=== PATIENT | male | born 1945 | race Caucasian/White ===

== ENCOUNTER 2025-02-15 06:47 | Day surgery (SDC) | payer MEDICARE ==
[~2025-02-15] VITALS: Ht 198.1 cm; Wt 75.8 kg
[2025-02-15] VITALS (9 sets, daily range): BP systolic 148–172; BP diastolic 76–92
[2025-02-15] MEDS ORDERED: CeFAZolin Sodium 1000 mg Vial ONE (06:54)
[2025-02-15] MEDS ORDERED: Heparin Sodium 1000 Units/ML 10ML MDV ONE (06:55)
[2025-02-15] MEDS ORDERED: NS 1,000 ML IV ONE ×2 (06:55→07:15)
[2025-02-15] MEDS ORDERED: Aspir 8181 MG PO (07:11)
[2025-02-15] MEDS ORDERED: Midazolam HCl 1MG / ML 2ML Vial ONE (07:15)
[2025-02-15] MEDS ORDERED: FentaNYL Citrate 50 MCG/ML 2 ML Injection ONE (07:15)
[2025-02-15] MEDS ORDERED: NS 0 ML IV ONE (07:15)
[2025-02-15] MEDS ORDERED: CeFAZolin Sodium 2,000 MG VIAL ONE ×2 (07:15→07:23)
[2025-02-15] MEDS ORDERED: NS 50 ML IV ONE (07:23)
--- NOTE | 2025-02-15 09:20 | NUR ---
PATIENT ARRIVED BACK TO RECOVERY ROOM SITTING UPRIGHT IN RECLINER. PATIENT DENYING ANY PAIN. LEFT PACEMAKER SITE DRY AND INTACT. VSS ON RA.
--- NOTE | 2025-02-15 10:00 | NUR ---
PATIENT SITTING UPRIGHT IN RECLINER, TOLERATING PO INTAKE WELL. CHEST X RAY PERFORMED. PATIENT COMPLAINING OF MILD PAIN AT INCISION SITE. 650 MG PO TYLENOL GIVEN. WILL CONTINUE TO MONITOR. ICE PACK PLACED ON INCISION SITE. MILD OOZING NOTED. WILL CONTINUE TO MONITOR. VSS ON RA.
--- NOTE | 2025-02-15 11:23 | NUR ---
PATIENT DISHCARGED HOME AT THIS TIME. DISCHARGE INSTRUCTIONS REVIEWED WITH PATIENT AND SON APOLINAR. ALL QUESTIONS WERE ANSWERED. ALL PATIENT BELONGINGS, PAPERWORK, AND PACEMAKER MONITOR LEFT WITH PATIENT. PIV REMOVED WITHOUT DIFFCIULTY, CATHETER INTACT. PATIENT WHEELED TO HOSPITAL ENTRANCE AND SON ABLE TO PROVIDE TRANSPORTATION HOME.
== END 2025-02-15 11:23 | disposition home or self-care (01) ==
LOC: MHTC 06:47
DX: I45.5 Other specified heart block (principal); I46.9 Cardiac arrest, cause unspecified; R55 Syncope and collapse; R00.1 Bradycardia, unspecified; R42 Dizziness and giddiness
CPT/HCPCS: 33208; 71046; 99152; 99153; A9270; C1785; C1894; C1898; J0690; J1644; J2250; J3010; J7030; J7040; Q9967

== ENCOUNTER 2025-04-04 11:13 | Inpatient (IN) | payer MEDICARE ==
[~2025-04-04] VITALS: Ht 198.1 cm; Wt 76.5 kg
[~2025-04-04 11:13] MED LIST: Aspir 8181 MG PO
[2025-04-04] MEDS ORDERED: HYDROmorphone HCl/Pf 1MG SYR IV ONE ×2 (11:25→11:45)
[2025-04-04] MEDS ORDERED: Ondansetron HCl 2 MG / ML 2ML Vial IV ONE (11:25)
[2025-04-04] MEDS ORDERED: Ketorolac Tromethamine 30mg Vial IV ONE (11:25)
[2025-04-04 11:45] LABS: BASOPHILS ABSOLUTE AUTO 0.04 K/mm3 (0.00-0.23); BASOPHILS PERCENT AUTO 0 % (0-2); EOSINOPHILS ABSOLUTE AUTO 0.01 K/mm3 (0.00-0.68); EOSINOPHILS PERCENT AUTO 0 % (0-6); Hematocrit 38.8 % (37.0-53.0); Hemoglobin 13.4 g/dL (13.5-17.5); IMMATURE GRAN ABSOLUTE AUTO 0.06 K/mm3 (0.00-0.10); IMMATURE GRAN PERCENT AUTO 1 % (0-1); LYMPHOCYTES ABSOLUTE AUTO 0.48 K/mm3 (0.84-5.20); LYMPHOCYTES PERCENT AUTO 4 % (21-46); MONOCYTES ABSOLUTE AUTO 0.98 K/mm3 (0.16-1.47); MONOCYTES PERCENT AUTO 8 % (4-13); Mean Corpuscular HGB Conc 34.5 g/dL (31.5-36.5); Mean Corpuscular Volume 96 fL (80-100); NEUTROPHILS ABSOLUTE AUTO 10.39 K/mm3 (1.96-9.15); NEUTROPHILS PERCENT AUTO 87 % (41-73); NRBC ABSOLUTE 0.00 K/mm3 (0.00-0.02); NRBC Auto 0.0 /100 WBC (0.0-0.2); Platelet Count 170 K/mm3 (150-400); RDW Coefficient Variation 12.4 % (11.7-14.2); RDW Standard Deviation 43.5 fL (35.1-46.3)
[2025-04-04 12:06] LABS: Alanine Aminotransfer (ALT/SGP 18.0 U/L (12-78); Albumin, Blood 3.3 g/dL (3.4-5.0); Albumin/Globulin Ratio 0.6 (0.8-1.8); Anion Gap 11.0 mmol/L (3-11); Aspartate Aminotrans (AST/SGOT 29.0 U/L (12-37); Bilirubin, Total 1.3 mg/dL (0.1-1.0); Blood Urea Nitrogen 22.0 mg/dL (8-24); CO2, Blood 25.0 mmol/L (21-32); Calcium, Blood 9.3 mg/dL (8.5-10.1); Chloride, Blood 104.0 mmol/L (98-108); Creatinine, Blood 1.38 mg/dL (0.60-1.20); Globulin, Blood 5.1 g/dL (2.2-4.0); Glucose, Blood 153.0 mg/dL (70-99); Potassium, Blood 5.0 mmol/L (3.5-5.5); Sodium, Blood 135.0 mmol/L (136-145); Total Protein, Blood 8.4 g/dL (6.4-8.2)
[2025-04-04 16:18] LABS: BODY FLUID RBC 0.010 M/mm3 (0-0)
[2025-04-04 16:30] LABS: RBC Count, Synovial Fluid 10000 /mm3 (0-0); WBC Count, Synovial Fluid 65600 /mm3 (0-180)
[2025-04-04 17:00] LABS: Appearance, Synovial Fluid Cloudy (Clear); Color, Synovial Fluid Yellow (None-P Yel); Lymphs, Synovial Fluid 1 % (0-15); Monocytes/Macrophages, Synovia 8 % (0-65); Neutrophils, Synovial Fluid 91 % (0-24)
[2025-04-04] MEDS ORDERED: CeFAZolin 1000MG in D5W 50 ML IV ONE (17:05)
[2025-04-04] MEDS ORDERED: CeFAZolin Sodium 1,000 MG in NS 50 ML IV ONE (17:05)
[2025-04-04 18:02] LABS: Lactate Dehydrogenase, Body Fl 931 U/L
[2025-04-04] MEDS ORDERED: FentaNYL Citrate 50 MCG/ML 2 ML Injection IV PRN (18:10)
[2025-04-04] MEDS ORDERED: OxyCODONE 5 mg/Acetamin 325 mg TABLET PO PRN (18:10)
[2025-04-04] MEDS ORDERED: Vancomycin (Pharmacy Consult) IV SCH (18:10)
[2025-04-04] MEDS ORDERED: Ondansetron HCl 2 MG / ML 2ML Vial IV PRN (18:10)
[2025-04-04] MEDS ORDERED: NS 1,000 ML IV SCH (18:30)
[2025-04-04] MEDS ORDERED: CefTRIAXone Sodium 2,000 MG in NS 100 ML IV SCH (18:30)
[2025-04-04 22:11] VITALS: BP 145/95
[2025-04-05] VITALS (19 sets, daily range): BP systolic 77–136; BP diastolic 53–98
--- NOTE | 2025-04-05 04:09 | NUR ---
SHIFT SUMMARY MAYTE WAS ALERT AND FULLY ORIENTED WHEN HE ARRIVED FROM THE ED. PT ABLE TO TRANSFER TO BED WITH 1 STAFF ASSIST. ASSESSMENT COMPLETED. PT PAIN WELL MANAGED AT THIS TIME. SENSATION AND CIRCULATION INTACT TO BLE'S. NO ACUTE EVENTS AFTER ARRIVAL. SURGICAL CONSULT CALLED IN BY TINNING EQUIPMENT TENDER.
[2025-04-05 05:57] LABS: BASOPHILS ABSOLUTE AUTO 0.03 K/mm3 (0.00-0.23); BASOPHILS PERCENT AUTO 0 % (0-2); EOSINOPHILS ABSOLUTE AUTO 0.03 K/mm3 (0.00-0.68); EOSINOPHILS PERCENT AUTO 0 % (0-6); Hematocrit 35.4 % (37.0-53.0); Hemoglobin 12.0 g/dL (13.5-17.5); IMMATURE GRAN ABSOLUTE AUTO 0.06 K/mm3 (0.00-0.10); IMMATURE GRAN PERCENT AUTO 1 % (0-1); LYMPHOCYTES ABSOLUTE AUTO 0.42 K/mm3 (0.84-5.20); LYMPHOCYTES PERCENT AUTO 4 % (21-46); MONOCYTES ABSOLUTE AUTO 1.10 K/mm3 (0.16-1.47); MONOCYTES PERCENT AUTO 10 % (4-13); Mean Corpuscular HGB Conc 33.9 g/dL (31.5-36.5); Mean Corpuscular Volume 98 fL (80-100); NEUTROPHILS ABSOLUTE AUTO 9.86 K/mm3 (1.96-9.15); NEUTROPHILS PERCENT AUTO 86 % (41-73); NRBC ABSOLUTE 0.00 K/mm3 (0.00-0.02); NRBC Auto 0.0 /100 WBC (0.0-0.2); Platelet Count 139 K/mm3 (150-400); RDW Coefficient Variation 12.5 % (11.7-14.2); RDW Standard Deviation 45.0 fL (35.1-46.3)
[2025-04-05 07:08] LABS: Anion Gap 11.0 mmol/L (3-11); Blood Urea Nitrogen 30.0 mg/dL (8-24); CO2, Blood 21.0 mmol/L (21-32); Calcium, Blood 8.6 mg/dL (8.5-10.1); Chloride, Blood 107.0 mmol/L (98-108); Creatinine, Blood 1.22 mg/dL (0.60-1.20); Glucose, Blood 88.0 mg/dL (70-99); Potassium, Blood 4.1 mmol/L (3.5-5.5); Sodium, Blood 135.0 mmol/L (136-145)
--- NOTE | 2025-04-05 13:36 | NUR ---
ASSUMED CARE OF PT @0700 AXO4. VSS. SWELLING/REDNESS NOTED TO L LEG. NPO BUT PROVIDED WITH MOUTH SWABS. PT STATES PAIN PRESENT BUT NOT NEEDING PAIN MEDS - THIS WAS REASSESSED MULTIPLE TIMES TO THIS POINT- PT CONTINUED TO DENY NEED. PT REPOSITIONING SELF IN BED. OR NURSE REMOVED PT FROM ROOM TO GO TO SURGERY @1340.
--- NOTE | 2025-04-05 14:04 | NUR ---
PT INTO SDS VIA BED FOR LEFT LEG I+D, Pre-Op teaching done. Pt verbalizes understanding. History, Chart, Medications and Allergies reviewed before start of procedure.Patient confirms NPO status and agrees with scheduled surgery. PT HAS INSPIRATORY WHEEZES. REMOTE H/O SMOKING FOR 40 YEARS. CURRENTLY SMOKES POT "ONCE IN A WHILE". ON RA, DENIES RECENT URI OR LUNG DISEASES
[2025-04-05] MEDS ORDERED: Sodium Hypochlorite 480 ML BTL (0.25%) ONE (14:26)
[2025-04-05] MEDS ORDERED: Vancomycin HCl 1000 MG ADDvantage ONE (14:26)
[2025-04-05] MEDS ORDERED: Rocuronium Bromide 10 MG/ML 5ML Injection IV ONE (14:43)
[2025-04-05] MEDS ORDERED: FentaNYL Citrate 50 MCG/ML 2 ML Injection ONE ×2 (14:58→15:33)
[2025-04-05] MEDS ORDERED: Dexamethasone Sod Phos 10 MG/ML 1ML VIAL ONE (15:14)
[2025-04-05] MEDS ORDERED: Sugammadex Sodium 200 MG/2ML SDV (100 MG/ML) ONE (15:14)
[2025-04-05] MEDS ORDERED: Ondansetron HCl 2 MG / ML 2ML Vial ONE (15:14)
[2025-04-05] MEDS ORDERED: Ketorolac Tromethamine 30mg Vial ONE (15:14)
[2025-04-05] MEDS ORDERED: Ondansetron HCl 2 MG / ML 2ML Vial IV PRN (16:30)
[2025-04-05] MEDS ORDERED: Albuterol 2.5 MG/3 ML VIAL INH PRN (16:30)
[2025-04-05] MEDS ORDERED: HYDROmorphone HCl/Pf 1MG SYR IV PRN (16:30)
[2025-04-05] MEDS ORDERED: HYDROmorphone HCl/Pf 1MG SYR ONE (16:34)
[2025-04-05] MEDS ORDERED: ePHEDrine Sulfate 50 MG/ML 1ML Injection IV PRN (16:35)
[2025-04-05] MEDS ORDERED: FentaNYL Citrate 50 MCG/ML 2 ML Injection IV PRN ×2 (16:35)
--- NOTE | 2025-04-05 17:52 | NUR ---
PT ARRIVES TO UNIT FROM PACU @9820 AXO4. DENIES NAUSEA - STATES MILD PAIN, NOT REQUIRING PAIN MEDS CURRENTLY. WRAPPING TO L LEG CDI, WIGGLING TOES EASILY, CAP REFILL <3SEC. ON RA. VSS. TOLERATING PO INTAKE AT THIS TIME. CALL LIGHT WITHIN REACH. PT TALKING ON PHONE WITH CURRENTLY.
[2025-04-06] VITALS (57 sets, daily range): BP systolic 71–111; BP diastolic 34–88
--- NOTE | 2025-04-06 03:42 | NUR ---
0330- PT HAS HAD SOFT BP'S THROUGHOUT THE NIGHT WITH MAP>65. THIS AM PT FOUND TO HAVE SBP IN 80'S WITH HRT RATE IN 140'S. PT LLE HAD SOME DECREASED SENSATION AND SWELLING OF LOWER CALF. CHERYL BANDAGE ADJUSTED. DR CONLEY CALLED AND CAME TO ASSESS PT. PROVIDER ORDERED 500 ML BOLUS OF LR, EKG AND TELE FOR PT. PROVIDER ORDERED TO BE NOTIFIED OF VS POST FLUID BOLUS. PT DENIES CX PAIN/ PRESSURE OR INCREASE IN LLE DISCOMFORT.
[2025-04-06 04:05] LABS: BASOPHILS ABSOLUTE AUTO 0.02 K/mm3 (0.00-0.23); BASOPHILS PERCENT AUTO 0 % (0-2); EOSINOPHILS ABSOLUTE AUTO 0.00 K/mm3 (0.00-0.68); EOSINOPHILS PERCENT AUTO 0 % (0-6); Hematocrit 30.7 % (37.0-53.0); Hemoglobin 10.3 g/dL (13.5-17.5); IMMATURE GRAN ABSOLUTE AUTO 0.11 K/mm3 (0.00-0.10); IMMATURE GRAN PERCENT AUTO 1 % (0-1); LYMPHOCYTES ABSOLUTE AUTO 0.25 K/mm3 (0.84-5.20); LYMPHOCYTES PERCENT AUTO 2 % (21-46); MONOCYTES ABSOLUTE AUTO 0.92 K/mm3 (0.16-1.47); MONOCYTES PERCENT AUTO 7 % (4-13); Mean Corpuscular HGB Conc 33.6 g/dL (31.5-36.5); Mean Corpuscular Volume 99 fL (80-100); NEUTROPHILS ABSOLUTE AUTO 12.37 K/mm3 (1.96-9.15); NEUTROPHILS PERCENT AUTO 91 % (41-73); NRBC ABSOLUTE 0.00 K/mm3 (0.00-0.02); NRBC Auto 0.0 /100 WBC (0.0-0.2); Platelet Count 199 K/mm3 (150-400); RDW Coefficient Variation 12.6 % (11.7-14.2); RDW Standard Deviation 45.2 fL (35.1-46.3)
[2025-04-06 04:29] LABS: Magnesium, Blood 2.2 mg/dL (1.6-2.4)
[2025-04-06 04:33] LABS: Anion Gap 10 mmol/L (3-11); Blood Urea Nitrogen 35 mg/dL (8-24); C-REACTIVE PROTEIN, EXT RANGE >19.000 mg/dL (0.000-0.300); CO2, Blood 24 mmol/L (21-32); Calcium, Blood 7.9 mg/dL (8.5-10.1); Chloride, Blood 107 mmol/L (98-108); Creatinine, Blood 1.20 mg/dL (0.60-1.20); Glucose, Blood 150 mg/dL (70-99); Potassium, Blood 4.0 mmol/L (3.5-5.5); Sodium, Blood 137 mmol/L (136-145)
[2025-04-06] MEDS ORDERED: Metoprolol Tartrate 1 MG/ML 5 ML VIAL IV ONE ×2 (04:45→05:20)
--- NOTE | 2025-04-06 04:46 | NUR ---
0445- DR CONLEY UPDATED ON PT. PROVIDER ORDERED IV LOPRESSOR AND A BOLUS IF PT BP DROPS MORE.
--- NOTE | 2025-04-06 05:48 | NUR ---
0545- PT MOVED TO ICU PER DR CONLEY ORDERS. PT IN NO DISTRESS OR DISCOMFORT. PT SON JAYCE WAS CALLED AND INFORMED OF PT SITUATION AND PT'S MOVE TO ICU 6. REPORT CALLED TO OCTAVIO KEATING IN ICU. PT TRANSPORTED TO ICU WITHOUT INCIDENT.
--- NOTE | 2025-04-06 06:00 | NUR ---
PT ARRIVED FROM [facility] [place] 2[place] AT APPROXIMATELY 0545. PT WAS A&OX4, SKIN COLOR AND CONDITION NORMAL. NO COMPLAINT OF DIZZINESS, SOB, OR PAIN. KNEE WAS ELEVATED AND REMAINED SO DURING TRANSFER BETWEEN BEDS. PT WAS QUITE ANXIOUS WHEN HE ARRIVED BUT HAS SINCE BEEN ABLE TO RELAX MODERATELY. BP IS STABLE, HR ELEVATED.
[2025-04-06 11:51] LABS: Magnesium, Blood 2.2 mg/dL (1.6-2.4); Thyroid Stimulating Hormone 0.522 uIU/mL (0.360-4.800)
[2025-04-06] MEDS ORDERED: Heparin Sodium,Porcine 5,000 UNIT/0.5 ML SDV SC SCH (14:00)
--- NOTE | 2025-04-06 18:44 | NUR ---
Summary. Pt alert and oriented this shift. Reporting minimal pain in surgical site. Dr. Steward in to see pt this afternoon, stated pt can put weight on left knee, keep dressings in place and change as needed. Dr. Concepcion into see pt as well for aflutter. Orders received for digoxin, see emar for administration. Pt hr starting to come down late this shift. No acute events, see chart for further details.
--- NOTE | 2025-04-06 19:52 | NUR ---
ASSUMPTION OF CARE ASSUMED PT'S CARE AT 1950,BEDSIDE REPORT COMPLETED.PT RESTING IN BED WITH LLE ELEVATED.PT A&O X4,PLAN OF CARE REVIEWED.PT DENIES PAIN,DENIES NUMBNESS/TINGLING,DENIES NAUSEA,DENIES SOB,DENIES NEEDS AT THIS TIME.CALL LIGHT AND PT'S ITEMS WITHIN REACH.MONITORING ONGOING PER CAREPLAN.
[2025-04-06] MEDS ORDERED: Enoxaparin 80 MG/0.8 ML SYR SC SCH (21:00)
[2025-04-07] VITALS (59 sets, daily range): BP systolic 74–142; BP diastolic 54–128
[2025-04-07 03:28] LABS: BASOPHILS ABSOLUTE AUTO 0.01 K/mm3 (0.00-0.23); BASOPHILS PERCENT AUTO 0 % (0-2); EOSINOPHILS ABSOLUTE AUTO 0.02 K/mm3 (0.00-0.68); EOSINOPHILS PERCENT AUTO 0 % (0-6); Hematocrit 23.7 % (37.0-53.0); Hemoglobin 7.8 g/dL (13.5-17.5); IMMATURE GRAN ABSOLUTE AUTO 0.04 K/mm3 (0.00-0.10); IMMATURE GRAN PERCENT AUTO 1 % (0-1); LYMPHOCYTES ABSOLUTE AUTO 0.57 K/mm3 (0.84-5.20); LYMPHOCYTES PERCENT AUTO 7 % (21-46); MONOCYTES ABSOLUTE AUTO 0.59 K/mm3 (0.16-1.47); MONOCYTES PERCENT AUTO 7 % (4-13); Mean Corpuscular HGB Conc 32.9 g/dL (31.5-36.5); Mean Corpuscular Volume 100 fL (80-100); NEUTROPHILS ABSOLUTE AUTO 7.13 K/mm3 (1.96-9.15); NEUTROPHILS PERCENT AUTO 85 % (41-73); NRBC ABSOLUTE 0.00 K/mm3 (0.00-0.02); NRBC Auto 0.0 /100 WBC (0.0-0.2); Platelet Count 203 K/mm3 (150-400); RDW Coefficient Variation 12.7 % (11.7-14.2); RDW Standard Deviation 45.8 fL (35.1-46.3)
[2025-04-07 03:47] LABS: Alanine Aminotransfer (ALT/SGP 30.0 U/L (12-78); Albumin, Blood 1.9 g/dL (3.4-5.0); Albumin/Globulin Ratio 0.6 (0.8-1.8); Anion Gap 7.0 mmol/L (3-11); Aspartate Aminotrans (AST/SGOT 41.0 U/L (12-37); Bilirubin, Total 0.2 mg/dL (0.1-1.0); Blood Urea Nitrogen 32.0 mg/dL (8-24); CO2, Blood 26.0 mmol/L (21-32); Calcium, Blood 7.5 mg/dL (8.5-10.1); Chloride, Blood 111.0 mmol/L (98-108); Creatinine, Blood 1.29 mg/dL (0.60-1.20); Globulin, Blood 3.2 g/dL (2.2-4.0); Glucose, Blood 103.0 mg/dL (70-99); Potassium, Blood 4.3 mmol/L (3.5-5.5); Sodium, Blood 140.0 mmol/L (136-145); Total Protein, Blood 5.1 g/dL (6.4-8.2)
--- NOTE | 2025-04-07 06:10 | NUR ---
PT MONITORED DURING THE SHIFT.PT SLEPT ON/OFF THROUGHOUT THE SHIFT ,PRN PAIN MEDICINE ADMINISTERED ORDERED PER PT'S REQUEST.HR HAS BEEN IN THE 60'S SINCE 2099.0100 DIGOXIN HELD FOR HR OF 59BPM.BP SOFT,MAP >65.NO ACUTE EVENTS NOTED THIS SHIFT.LLE ELEVATED ON PILLOWS.PT AWAKE AT THIS TIME WATCHING TV.PT DENIES PAIN,DENIES NEEDS.CALL LIGHT AND PT'S ITEMS WITHIN REACH.MONITORING ONGOING PER CAREPLAN.
[2025-04-07 08:11] LABS: Ferritin, Serum 800.0 ng/mL (26-388); Total Iron Binding Capacity 117.0 ug/dL (250-450)
[2025-04-07 14:00] LABS: Hematocrit 23.1 % (37.0-53.0); Hemoglobin 7.8 g/dL (13.5-17.5)
--- NOTE | 2025-04-07 16:52 | NUR ---
Transfer. Pt moved to room 219 at approximately 1645. Report given to RN assuming care. Pt alert and oriented at time of transfer, vs stable. All personal belongings taken to new room with patient. Pt taken via recliner.
--- NOTE | 2025-04-07 18:49 | NUR ---
PT ARRIVED FROM ICU 6 TO 219 AT 1650 IN RECLINER. A/O X4, ORIENTED TO ROOM SET UP AND SAFETY. LUNGS ARE CLEAR. TELE SR 60'S. PT ADMITS TO PAIN IN LLE, MEDICATED. WILL CONT TO RENALDO REMAINDER OF SHIFT.
--- NOTE | 2025-04-07 18:51 | NUR ---
TAINA- PT A/O X4, USES CALL LIGHT AND ABLE TO MAKE NEEDS KNOWN. TRANSFERRED FROM ICU 6 TO 219 AT 1950. VSS, LUNGS CLEAR. PT IN RECLINER WITH LEGS ELEVATED, DRESSING INTACT TO LLE. MEDICATED FOR PAIN WITH PERC 1, SUB RELEIF. PT TOLERATING FOOD AND FLUID. NATALIYA IN ICU REPORTED PT AMBULATED FROM BED TO BATHROOM 1 SBA WITH WALKER. VSS, TELE SR 60'S. WILL REPORT TO KRISTA KEATING
[2025-04-08 05:20] VITALS: BP 131/65
[2025-04-08 06:25] LABS: BASOPHILS ABSOLUTE AUTO 0.02 K/mm3 (0.00-0.23); BASOPHILS PERCENT AUTO 0 % (0-2); EOSINOPHILS ABSOLUTE AUTO 0.19 K/mm3 (0.00-0.68); EOSINOPHILS PERCENT AUTO 3 % (0-6); Hematocrit 24.9 % (37.0-53.0); Hemoglobin 8.2 g/dL (13.5-17.5); IMMATURE GRAN ABSOLUTE AUTO 0.13 K/mm3 (0.00-0.10); IMMATURE GRAN PERCENT AUTO 2 % (0-1); LYMPHOCYTES ABSOLUTE AUTO 0.60 K/mm3 (0.84-5.20); LYMPHOCYTES PERCENT AUTO 9 % (21-46); MONOCYTES ABSOLUTE AUTO 0.43 K/mm3 (0.16-1.47); MONOCYTES PERCENT AUTO 7 % (4-13); Mean Corpuscular HGB Conc 32.9 g/dL (31.5-36.5); Mean Corpuscular Volume 100 fL (80-100); NEUTROPHILS ABSOLUTE AUTO 5.03 K/mm3 (1.96-9.15); NEUTROPHILS PERCENT AUTO 79 % (41-73); NRBC ABSOLUTE 0.00 K/mm3 (0.00-0.02); NRBC Auto 0.0 /100 WBC (0.0-0.2); Platelet Count 256 K/mm3 (150-400); RDW Coefficient Variation 12.6 % (11.7-14.2); RDW Standard Deviation 45.9 fL (35.1-46.3)
--- NOTE | 2025-04-08 06:28 | NUR ---
SHIFT SUMMARY NOC. PT POD 2 FOR I&D OF LEFT KNEE. DRESSING C/D/I. PT MEDICATED FOR PAIN WITH REPORTED RELIEF OF SX. PT VOIDING URINE. PT'S TELEMETRY INTACT WITH NO REPORTED EVENTS. PT MAKES NEEDS KNOWN, CALL LIGHT IN REACH.
[2025-04-08 06:56] LABS: Alanine Aminotransfer (ALT/SGP 41.0 U/L (12-78); Albumin, Blood 2.0 g/dL (3.4-5.0); Albumin/Globulin Ratio 0.5 (0.8-1.8); Anion Gap 8.0 mmol/L (3-11); Aspartate Aminotrans (AST/SGOT 38.0 U/L (12-37); Bilirubin, Total 0.3 mg/dL (0.1-1.0); Blood Urea Nitrogen 24.0 mg/dL (8-24); CO2, Blood 25.0 mmol/L (21-32); Calcium, Blood 7.7 mg/dL (8.5-10.1); Chloride, Blood 110.0 mmol/L (98-108); Creatinine, Blood 1.0 mg/dL (0.60-1.20); Globulin, Blood 3.7 g/dL (2.2-4.0); Glucose, Blood 95.0 mg/dL (70-99); Potassium, Blood 4.3 mmol/L (3.5-5.5); Sodium, Blood 139.0 mmol/L (136-145); Total Protein, Blood 5.7 g/dL (6.4-8.2)
[2025-04-08 07:33] VITALS: BP 163/130
[2025-04-08 07:34] VITALS: BP 151/71
[2025-04-08 14:56] VITALS: BP 144/75
[2025-04-08] MEDS ORDERED: OxyCODONE 5 mg/Acetamin 325 mg TABLET PO ONE (15:00)
--- NOTE | 2025-04-08 18:29 | NUR ---
SHIFT SUMMARY WORKED w/ THERAPY. UP IN CHAIR FOR PART OF SHIFT. PLEASANT & ALERT. PAIN WELL CONTROLLED.
[2025-04-08 19:34] VITALS: BP 113/73; BP 148/85
--- NOTE | 2025-04-08 21:00 | NUR ---
TELEMETRY EVENT. AT 2047 THIS RN WAS NOTIFIED BY [employer] [facility] THAT PT HAD A 9 BEAT RUN OF SINUS TACH AT 2023, AND THEN HEART RATE RETURNED TO 70S. THIS RN IMMEDIATELY WENT TO VISUALIZE PATIENT. PT DENIES SOB OR CHEST PAIN/PRESSURE. PT REPORTED HAVING AN "ARGUMENT" WITH HIS SON ON THE PHONE AND WAS UPSET. PT DENIES CONCERNS. DISCUSSED EVENT WITH FELT HAT POUNCING OPERATOR HAND ELENA ESPINOZA.
[2025-04-08 23:33] VITALS: BP 138/86
[2025-04-09] VITALS (24 sets, daily range): BP systolic 117–180; BP diastolic 63–88
[2025-04-09] MEDS ORDERED: Ropivacaine 0.5% HCl/Pf 123.125 MG,EPINEPHrine HCL 0.25 MG,Ketorolac Tromethamine 15 MG... INFIL SCH (07:10)
[2025-04-09] MEDS ORDERED: Tranexamic Acid 100 ML IV SCH (07:15)
--- NOTE | 2025-04-09 07:32 | NUR ---
SHIFT SUMMARY NOC. PT POD 3 FOR LEFT I&D. PT'S DRESSING C/D/I. PT MEDICATED FOR PAIN WITH REPORTED RELIEF OF SX. PT NPO SINCE 0000 FOR PLANNED REPEAT I&D. PT VOIDING VIA URINAL. CALLLIGHT IN REACH.
[2025-04-09] MEDS ORDERED: Midazolam HCl 1MG / ML 2ML Vial ONE (11:48)
[2025-04-09] MEDS ORDERED: FentaNYL Citrate 50 MCG/ML 2 ML Injection ONE ×3 (11:48→14:52)
--- NOTE | 2025-04-09 12:00 | NUR ---
TO DAY SURGERY VIA HOSPITAL BED
--- NOTE | 2025-04-09 12:15 | NUR ---
RIGHT WRIST IV SITE FLUSHED WITH 5NS/PATENT.
[2025-04-09] MEDS ORDERED: Vancomycin HCl 1000 MG ADDvantage ONE (13:19)
[2025-04-09] MEDS ORDERED: HYDROmorphone HCl/Pf 1MG SYR ONE (13:26)
[2025-04-09] MEDS ORDERED: Labetalol HCL 5 MG/ML 4ML Injection (Single Dose) ONE (13:47)
[2025-04-09] MEDS ORDERED: Ondansetron HCl 2 MG / ML 2ML Vial ONE (13:50)
[2025-04-09] MEDS ORDERED: Dexamethasone Sod Phos 10 MG/ML 1ML VIAL ONE (13:50)
[2025-04-09] MEDS ORDERED: HYDROmorphone HCl/Pf 1MG SYR IV PRN ×3 (14:00→15:25)
[2025-04-09] MEDS ORDERED: FentaNYL Citrate 50 MCG/ML 2 ML Injection IV PRN ×2 (14:00)
[2025-04-09] MEDS ORDERED: Ondansetron HCl 2 MG / ML 2ML Vial IV PRN ×2 (14:00→15:30)
[2025-04-09] MEDS ORDERED: HydrALAZINE HCl 20 MG / ML 1ML Vial IV PRN (14:00)
--- NOTE | 2025-04-09 14:14 | NUR ---
04/09/25 1414 Radha Burnett VANCOMYCIN POWDER 2GM MIXED INTO CINTHIA RESORBABLE MINI BEAD KIT AND USED THROUOUGHT PROCEDURE.
[2025-04-09] MEDS ORDERED: Albuterol 2.5 MG/3 ML VIAL ONE (14:59)
[2025-04-09] MEDS ORDERED: Magnesium Hydroxide Conc 10 ML UDC PO PRN (15:30)
--- NOTE | 2025-04-09 16:02 | NUR ---
PT TO ROOM 219 FROM PACU. L LEG WRAPPED IN CHERYL WRAP CDI. POST OP VS STARTED AND ARE STABLE. WILL CONTINUE TO MONITOR.
--- NOTE | 2025-04-09 17:53 | NUR ---
SHIFT SUMMARY PT WITH KNEE REVISION/WASHOUT TODAY. PRESENTLY SLEEPING. POST OP VS STABLE. WILL CONTINUE TO MONITOR.
[2025-04-09] MEDS ORDERED: Ketorolac Tromethamine 15mg Vial IV SCH (18:00)
[2025-04-10 04:26] LABS: BASOPHILS ABSOLUTE AUTO 0.01 K/mm3 (0.00-0.23); BASOPHILS PERCENT AUTO 0 % (0-2); EOSINOPHILS ABSOLUTE AUTO 0.00 K/mm3 (0.00-0.68); EOSINOPHILS PERCENT AUTO 0 % (0-6); Hematocrit 23.0 % (37.0-53.0); Hemoglobin 7.6 g/dL (13.5-17.5); IMMATURE GRAN ABSOLUTE AUTO 0.05 K/mm3 (0.00-0.10); IMMATURE GRAN PERCENT AUTO 0 % (0-1); LYMPHOCYTES ABSOLUTE AUTO 0.26 K/mm3 (0.84-5.20); LYMPHOCYTES PERCENT AUTO 2 % (21-46); MONOCYTES ABSOLUTE AUTO 0.38 K/mm3 (0.16-1.47); MONOCYTES PERCENT AUTO 3 % (4-13); Mean Corpuscular HGB Conc 33.0 g/dL (31.5-36.5); Mean Corpuscular Volume 98 fL (80-100); NEUTROPHILS ABSOLUTE AUTO 10.57 K/mm3 (1.96-9.15); NEUTROPHILS PERCENT AUTO 94 % (41-73); NRBC ABSOLUTE 0.00 K/mm3 (0.00-0.02); NRBC Auto 0.0 /100 WBC (0.0-0.2); Platelet Count 329 K/mm3 (150-400); RDW Coefficient Variation 12.4 % (11.7-14.2); RDW Standard Deviation 44.1 fL (35.1-46.3)
[2025-04-10 04:36] VITALS: BP 118/69
[2025-04-10 04:48] LABS: C-REACTIVE PROTEIN, EXT RANGE 13.6 mg/dL (0.000-0.300); Magnesium, Blood 2.4 mg/dL (1.6-2.4)
[2025-04-10 04:49] LABS: Anion Gap 8.0 mmol/L (3-11); Blood Urea Nitrogen 20.0 mg/dL (8-24); CO2, Blood 28.0 mmol/L (21-32); Calcium, Blood 8.1 mg/dL (8.5-10.1); Chloride, Blood 105.0 mmol/L (98-108); Creatinine, Blood 1.04 mg/dL (0.60-1.20); Glucose, Blood 129.0 mg/dL (70-99); Potassium, Blood 4.7 mmol/L (3.5-5.5); Sodium, Blood 136.0 mmol/L (136-145)
--- NOTE | 2025-04-10 05:22 | NUR ---
SEAM STAYER SUMMARY PT IS POD 0 FOR 2ND I&D OF L KNEE. DRESSING WITH CHERYL WRAP FROM ANKLE TO MID THIGH, NO DRAINAGE NOTED. DRESSING C/D/I. PT DENIES N/T TO EXTREMETIES AND IS ABLE TO WIGGLE HIS TOES, SENSATION INTACT. PAIN HAS BEEN MANAGED THUS FAR WITH SCHEDULED TORADOL AND TYLENOL. PT HAS A SCABBED AREA BEHIND HIS R EAR FROM A SKIN BIOPSY THAT THE PT ACCIDENTALLY SCRATCHED OFF THE SCAB AND IT BEGAN BLEEDING. AREA CLEANED AND BANDAGE APPLIED. VSS, EVELYN.
[2025-04-10 07:22] VITALS: BP 125/67
[2025-04-10] MEDS ORDERED: Enoxaparin 40 MG/0.4 ML SYR SC SCH (09:00)
[2025-04-10 11:34] VITALS: BP 131/83
[2025-04-10 15:02] VITALS: BP 132/69
--- NOTE | 2025-04-10 15:42 | NUR ---
"Spiritual Care | Nurse request. Pt. is awake in bed and cautiously welcomed my visit. Facilitated a life review and confirme that his is currently at [facility] and is contending with serious health conerns. Pt. also verbalized that today was his wedding anniversary. With sincere emapthy and a calming presence the Pt. warmed to our visit. Pt. verbalized that his son left o go to [place] and should be arriving at any moment. Pt. displayed evidence of trust and then we considered matters of kourtney and belief. Pt. welcomed payer for both himelf and his Eddie. Prayed with Pt. Pt. 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
--- NOTE | 2025-04-10 17:24 | NUR ---
pt resting. up for walks multiple times today. sat up in chair for extended period of time. Dressing changed this am per Dr Blanco and is to be changed once daily starting tomorrow. MD prefers cleansing with peroxide. pt denies complaints. using scheduled toradol/tylenol for pain control. Will continue to monitor.
[2025-04-10 19:51] VITALS: BP 115/62
[2025-04-10 23:20] VITALS: BP 134/73
[2025-04-11 05:42] VITALS: BP 133/75
[2025-04-11 06:57] LABS: BASOPHILS ABSOLUTE AUTO 0.03 K/mm3 (0.00-0.23); BASOPHILS PERCENT AUTO 0 % (0-2); EOSINOPHILS ABSOLUTE AUTO 0.31 K/mm3 (0.00-0.68); EOSINOPHILS PERCENT AUTO 3 % (0-6); Hematocrit 21.4 % (37.0-53.0); Hemoglobin 7.2 g/dL (13.5-17.5); IMMATURE GRAN ABSOLUTE AUTO 0.03 K/mm3 (0.00-0.10); IMMATURE GRAN PERCENT AUTO 0 % (0-1); LYMPHOCYTES ABSOLUTE AUTO 0.71 K/mm3 (0.84-5.20); LYMPHOCYTES PERCENT AUTO 8 % (21-46); MONOCYTES ABSOLUTE AUTO 0.55 K/mm3 (0.16-1.47); MONOCYTES PERCENT AUTO 6 % (4-13); Mean Corpuscular HGB Conc 33.6 g/dL (31.5-36.5); Mean Corpuscular Volume 97 fL (80-100); NEUTROPHILS ABSOLUTE AUTO 7.73 K/mm3 (1.96-9.15); NEUTROPHILS PERCENT AUTO 83 % (41-73); NRBC ABSOLUTE 0.00 K/mm3 (0.00-0.02); NRBC Auto 0.0 /100 WBC (0.0-0.2); Platelet Count 403 K/mm3 (150-400); RDW Coefficient Variation 12.7 % (11.7-14.2); RDW Standard Deviation 44.2 fL (35.1-46.3)
[2025-04-11 07:09] LABS: Anion Gap 7.0 mmol/L (3-11); Blood Urea Nitrogen 24.0 mg/dL (8-24); CO2, Blood 28.0 mmol/L (21-32); Calcium, Blood 8.5 mg/dL (8.5-10.1); Chloride, Blood 107.0 mmol/L (98-108); Creatinine, Blood 1.22 mg/dL (0.60-1.20); Glucose, Blood 88.0 mg/dL (70-99); Potassium, Blood 4.2 mmol/L (3.5-5.5); Sodium, Blood 138.0 mmol/L (136-145)
[2025-04-11 08:13] VITALS: BP 140/72
[2025-04-11 11:43] VITALS: BP 136/65
[2025-04-11] MEDS ORDERED: Ampicillin Sod 2,000 MG in NS 100 ML IV SCH (14:00)
[2025-04-11] MEDS ORDERED: Ampicillin Sodium 2000MG Vial IV SCH (14:00)
--- NOTE | 2025-04-11 15:32 | NUR ---
SUMMARY ASSUMED CARE OF PT @0700. AXO4. VSS. PICC DRESSING CHANGED, HUBS CLEANED/CHANGED. DRESSING TO L KNEE CHANGED, CLEANSED PER DR ANDERSON ORDERS. PT AMBULATING IN HALLWAY WITH PHYSICAL THERAPY AND STAFF BUT MOSTLY ELEVATES LEG IN BED. LEG WITH MILD PAIN PER PT, TREATED WITH TYLENOL. ABX REGIMEN CHANGED PER DR JAMA, ADMINISTERED. CARE MANAGEMENT SET UP TRANSPORTATION TO [facility], AWAITING TRANSPORTATION NOW. PT AWARE, LETTING FAMILY KNOW ABOUT TRANSFER OF CARE/LOCATION. PT HAD BM THIS SHIFT. OTHERWISE, USING CALL LIGHT APPROPRIATELY.
[2025-04-11 15:42] VITALS: BP 148/79
--- NOTE | 2025-04-11 16:31 | NUR ---
REPORT GIVEN TO IJEOMA CORDERO - AWAITING TRANSPORT
--- NOTE | 2025-04-11 16:45 | NUR ---
PT DC'D @1214 NO ACUTE CHAGES FROM SUMMARY NOTE. PT TRANSFERRED TO WHEELCHAIR WITH TRANSPORT COMPANY. PT WITH ALL BELONGINGS. PICC INTACT. DRESSING INTACT.
== END 2025-04-11 16:45 | DRG 485 ==
LOC: ER 11:13 → SURS 18:06 → ICUE 04-06 05:35 → SURS 04-07 17:14 → MEDS 04-11 14:09 → SURS 04-11 14:09
PROVIDERS: Emergency Medicine; Internal Medicine; Internal Medicine Interventional Cardiology; Nurse Practitioner Acute Care; Orthopaedic Surgery; Student in an Organized Health Care Education/Training Program; ADMIT Internal Medicine
PROC: 3E03329 Introduction of Other Anti-infective into Peripheral Vein, Percutaneous Approach (ICD-10-PCS; 2025-04-04)
PROC: 0SUW09Z Supplement Left Knee Joint, Tibial Surface with Liner, Open Approach (ICD-10-PCS; 2025-04-09)
PROC: 0SPD09Z Removal of Liner from Left Knee Joint, Open Approach (ICD-10-PCS; principal; 2025-04-09 12:30)
PROC: 02HV33Z Insertion of Infusion Device into Superior Vena Cava, Percutaneous Approach (ICD-10-PCS; 2025-04-10)
DX: T84.54XA Infection and inflammatory reaction due to internal left knee prosthesis, initial encounter (principal); E43 Unspecified severe protein-calorie malnutrition; M72.6 Necrotizing fasciitis; I48.92 Unspecified atrial flutter; N17.9 Acute kidney failure, unspecified; R64 Cachexia; M00.262 Other streptococcal arthritis, left knee; Z68.1 Body mass index [BMI] 19.9 or less, adult; C44.719 Basal cell carcinoma of skin of left lower limb, including hip; I49.5 Sick sinus syndrome; F12.90 Cannabis use, unspecified, uncomplicated; I48.91 Unspecified atrial fibrillation; N18.2 Chronic kidney disease, stage 2 (mild); I95.9 Hypotension, unspecified; Z79.82 Long term (current) use of aspirin; Z79.899 Other long term (current) drug therapy; Z96.652 Presence of left artificial knee joint; Z95.0 Presence of cardiac pacemaker; Y79.2 Prosthetic and other implants, materials and accessory orthopedic devices associated with adverse incidents
CPT/HCPCS: 20610; 36415; 36569; 71045; 73560-LT; 73562-LT; 80048; 80053; 80162; 82728; 83540; 83550; 83605; 83615; 83735; 84443; 85014; 85018; 85025; 85651; 86140; 87040; 87070; 87075; 87147; 87184; 87205; 88305; 88311; 89051; 89060; 93005; 93010; 93308; 93321; 93971; 94760; 96374-59; 96375-59; 97110; 97116; 97161; 97165; 97530; 97535; 99285-25; A9270; C1751; J0166; J0290; J0690; J0696; J0735; J1100; J1160; J1171; J1650; J1885; J2250; J2405; J2704; J2795; J3010; J3373; J7030; J7050; J7120